=== PATIENT | male | born 1970 | race Caucasian/White ===

== ENCOUNTER 2019-12-06 22:02 | Inpatient (IN) | payer BC, SELFPAY ==
[2019-12-06 22:04] VITALS: BP 146/103; PULSE 126; RESP 21; TEMP 37; O2SAT 99; BMI 31.5
--- NOTE | 2019-12-06 22:09 | ED_ITS ---
Entered by Anna Landry, acting as scribe for Vida Villasenor HPI - Anxiety General: Chief Complaint: Chest Pain Stated Complaint: CP/ANXIETY Time Seen by Provider: 12/06/19 22:12 History of Present Illness: HPI narrative: Pt states he used meth yesterday after being clean for 2 years. Pt states he recently moved to a new house and has been trying to start fresh . He reports some dottie has been in his house and on his property with surveillance drones. Pt is incredibly paranoid and states he became violent tonight because he just couldnt handle it anymore . EMS reports this paranoia to be hallucinated. 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 MD complaint: anxiety Onset (ago): day(s) (1) Severity: mild Quality: constant Place: home History of similar episodes: Yes Provoking factors: other (meth induced) Relieving factors: nothing Associated symptoms: Deny chills, confusion, diaphoresis, fever(s), headache(s), malaise, nausea or vomiting Review of Systems General: Reports: other (negative unless marked) Const: Denies: fever, chills, body aches, fatigue, malaise or diaphoresis Eyes: Denies: change in vision or blurry vision ENMT: Denies: throat pain, painful swallowing, hoarseness, ear pain, ear discharge, Change in hearing or nasal discharge Resp: Denies: shortness of breath, productive cough, non-productive cough, wheezing, coughing up blood or chest congestion GI: Denies: abdominal pain, nausea, vomiting, vomiting blood, coffee grounds in vomit, diarrhea, constipation, cramping, blood in stool or black tarry stool : Denies: flank pain, difficulty urinating, painful urination, urinary frequency, urinary urgency, decreased urine ouput, urinary incontinence or blood in urine Musc: Denies: neck pain, back pain, extremity pain, extremity swelling, joint pain, joint swelling, joint warmth or joint stiffness Skin/Breast: Denies: rash, skin tenderness or yellow skin Neuro: Denies: headache, numbness in extremities, weakness in extremities, changes in sensation, lack of coordination, difficulty walking, dizziness, vertigo or confusion Psych: Reports: anxiety, paranoia, difficulty concentrating and visual hallucinations; Denies: suicidal ideation Endo: Denies: excessive thirst, tired all the time, cold intolerance, exc essive sweating, flushing or hot flashes Brandon/Lymph: Denies: easy bruising, easy bleeding, petechiae or enlarged lymph nodes All/Imm: Denies: hives, throat swelling, tongue swelling, facial swelling or acute wheezing PFSH ED PFSH: Statuses (acute, chronic, etc) shown below reflect problem list status as previously entered and may not be historically accurate Social History Smoking and tobacco status: current some day smoker Substance/Drug Use: current Substance/Drug use type: Methamphetamine Other substance/drug use details: previous addict, clean for 2 years until yesterday Physical Exam HENMT: COMMON NORMALS: normocephalic, head/scalp atraumatic, hearing grossly normal bilaterally, external ears normal, EAC's normal, external nose normal and moist oral mucous membranes HEAD & SCALP: normal to inspection, normocephalic and atraumatic FACE & SINUS: normal facial exam and face symmetric NOSE: external nose normal and nares normal EXTERNAL EAR: Yes external ears normal EXTERNAL AUDITORY CANAL: EAC's normal MOUTH: oral and palatal mucosa normal and tongue normal Eye: COMMON NORMALS: PERRL, EOMs intact bilaterally, conjunctivae normal and no scleral icterus GENERAL EYE: normal appearance of both eyes and normal light reflex CONJUNCTIVA: Yes conjunctivae normal SCLERA: sclerae normal CORNEA: Yes corneas normal PUPIL: Yes PERRL DIRECT OPHTHALMOSCOPY: Yes normal light reflex Neck/C-Spine: COMMON NORMALS: full ROM, no lymphadenopathy, supple, no meningeal signs and no JVD GENERAL: Yes normal visual inspection and Yes trachea midline CERVICAL SPINE: Yes cervical ROM normal Chest: COMMONS NORMALS: inspection of chest normal and palpation of chest normal Resp: COMMON NORMALS: normal respiratory effort, no retractions, no use of accessory muscles and clear to auscultation bilaterally EFFORT & INSPECTION: Yes able to speak in complete sentences AUSCULTATION: clear to auscultation bilaterally Cardio: COMMON NORMALS: no JVD, regular rate, regular rhythm, S1 normal heart sound, S2 normal heart sound, no gallops, no clicks, no murmurs and no rub JUGULAR VENOUS DISTENTION: no JVD RATE: regular rate RHYTHM: regular rhythm HEART SOUNDS: S1 normal and S2 normal GI: COMMON NORMALS: soft to palpation, non-tender, no hepatosplenomegaly and no masses INSPECTION: Yes normal to inspection PALPATION: Yes soft and Yes no hepatosplenomegaly : COMMON NORMALS: Yes no CVA tenderness BLADDER/KIDNEY EXAM: Yes no CVA tenderness Back/Pelvis: COMMON NORMALS: no CVA tenderness, thoracic and lumbar spine normal to inspection, no thoracic nor lumbar tenderness and thoraco-lumbar ROM normal Extremity: COMMON NORMALS: normal to inspection, full ROM, normal capillary refill, no joint enlargement, no clubbing, cyanosis or edema and no calf tenderness Neuro: COMMON NORMALS: CN's II-XII intact bilaterally, moves all extremities, no focal motor deficits and no sensory deficits noted MENINGEAL SIGNS: Yes no meningeal signs Psych: COMMON NORMALS: speech normal APPEARANCE: Yes grossly normal ATTITUDE: Yes paranoid and Yes bizarre ACTIVITY/MOTOR BEHAVIOR: Yes restless SPEECH: Yes normal speech MOOD & AFFECT: Yes anxious and Yes expansive affect THOUGHT PROCESS: flight of ideas and loose associations THOUGHT CONTENT: Yes hallucination(s) ATTENTION/CONCENTRATION: Yes attention grossly intact MEMORY/COGNITION: Yes memory grossly intact and Yes cognition grossly intact INSIGHT: poor JUDGEMENT: fair Skin: COMMON NORMALS: no rashes or lesions noted, skin turgor normal, no jaundice, no petechiae and no mottling GENERAL SKIN EXAM: no rashes or lesions noted and turgor normal Course Vital Signs: Vital signs: Vital Signs Temperature 98.6 F 12/06/19 22:04 Pulse Rate 105 H 12/07/19 00:37 Respiratory Rate 19 H 12/07/19 00:37 Blood Pressure 120/90 12/07/19 00:37 Pulse Oximetry 96 12/07/19 00:37 MDM - Anxiety MDM Narrative: Medical decision making narrative: Arrival?Anika comes in with chest discomfort and tightness after using methamphetamines. He claims he used them yesterday. He appears as though he may still be under the influence of them as he is very paranoid and tachycardic. It appears as though he is having hallucinations. At this time we will evaluate him from a cardiac standpoint as acute coronary syndrome, pulmonary embolism, pneumothorax or toxicologic problem could still be an issue and we will evaluate for this appropriately. We will treat with Ativan and IV fluids and reassess. 0130 -the patient appears to be paranoid still. He is received Ativan and Haldol but still is having hallucinations and delusions. I see no medical cause for his symptoms at this time other than probable methamphetamines. I reviewed the case in full with Dr. emanuel who was agreeable to admit the patient for treatment in the MPU. EKG Data^: EKG 1: EKG interpretation date: 12/06/19 EKG interpretation time: 22:31 Prior EKG tracings: not available for review Interpretation: Sinus tachycardia with a heart rate of 105, normal AK intervals, normal QRS, normal QTC, normal axis, nonspecific ST-T wave changes. Lab Data: Attestation: I reviewed the patient's lab results. Labs: Lab Results 12/06/19 12/06/19 12/06/19 Range/Units 22:27 22:27 22:27 WBC 10.7 H (4.0-10.0) 10^3/ uL RBC 4.79 (4.1-5.3) 10^6/u L Hgb 15.6 (11.7-16.6) g/dL Hct 43.8 (42.0-52.0) % MCV 91.4 (80-94) fL MCH 32.6 (28.0-34.0) pg MCHC 35.6 (30.0-36.0) g/dL RDW 11.3 L (12.1-15.1) % Plt Count 258 (130-400) 10^3/c mm MPV 10.8 H (7.4-10.4) fL Neut % (Auto) 59.9 % Lymph % (Auto) 30.1 % Kleberg % (Auto) 8.3 % Eos % (Auto) 0.7 % Baso % (Auto) 0.6 % Neut # (Auto) 6.4 (1.8-7.7) 10^3/u L Lymph # (Auto) 3.2 (0.8-4.8) 10^3/u L Kleberg # (Auto) 0.9 (0.2-0.9) 10^3/u L Eos # (Auto) 0.1 (0.0-0.8) 10^3/u L Baso # (Auto) 0.1 (0.0-0.1) 10^3/u L Nucleated RBC % (a uto) 0 % Nucleated RBCs # 0.0 /100WBC Sodium 137 (136-145) mmol/L Potassium 4.1 (3.5-5.1) mmol/L Chloride 97 L (98-107) mmol/L Carbon Dioxide 25 (22-29) mmol/L Anion Gap 19.1 H (5-19) BUN 12 (6-20) mg/dL Creatinine 1.1 (0.7-1.2) mg/dL GFR Calculation 71.1 L (90-130) mL/min Glucose 122 H (74-109) mg/dL Lactic Acid 1.2 (0.5-2.2) mmol/L Calcium 10.7 H (8.6-10.0) mg/Dl Magnesium 1.8 (1.7-2.3) mg/dL Total Bilirubin 0.5 (0.15-1.2) mg/dL AST 50 H (0-40) U/L ALT 49 H (0-41) U/L Alkaline Phosphata se 56 (40-130) IU/L Troponin T Baselin e (0-15) ng/mL Troponin T 120 Min sunita (0-15) ng/mL Delta Troponin T (0-10) ABS# Total Protein 7.6 (6.6-8.7) g/dL Albumin 4.4 (3.5-5.2) g/dL Globulin 3.2 (1.3-4.6) g/dL Urine Color (Yellow) Urine Appearance (CLEAR) Urine pH (5-7) Ur Specific Gravit y (1.005-1.030) Urine Protein (Negative) Urine Glucose (UA) (Normal) Urine Ketones (Negative) Urine Occult Blood (Negative) Urine Nitrate (Negative) Urine Bilirubin (NEGATIVE) Urine Urobilinogen (Negative) mg/dL Ur Leukocyte Marie ase (Negative) Urine RBC (0-2) /hpf Urine WBC (0-5) /hpf Ur Squamous Epith Cells (0-5) Urine Bacteria (NONE) Urine Opiates Scre en (Negative) ng/mL Ur Barbiturates Sc reen (Negative) ng/mL Ur Phencyclidine S crn (Negative) ng/mL Ur Amphetamines Sc reen (Negative) ng/mL U Benzodiazepines Scrn (Negative) ng/mL Urine Cocaine Scre en (Negative) ng/mL U Marijuana (THC) Screen (Negative) ng/mL Ethyl Alcohol < 10 (0-10) mg/dL 12/06/19 12/06/19 12/06/19 Range/Units 22:27 23:08 23:08 WBC (4.0-10.0) 10^3/ uL RBC (4.1-5.3) 10^6/u L Hgb (11.7-16.6) g/dL Hct (42.0-52.0) % MCV (80-94) fL MCH (28.0-34.0) pg MCHC (30.0-36.0) g/dL RDW (12.1-15.1) % Plt Count (130-400) 10^3/c mm MPV (7.4-10.4) fL Neut % (Auto) % Lymph % (Auto) % Kleberg % (Auto) % Eos % (Auto) % Baso % (Auto) % Neut # (Auto) (1.8-7.7) 10^3/u L Lymph # (Auto) (0.8-4.8) 10^3/u L Kleberg # (Auto) (0.2-0.9) 10^3/u L Eos # (Auto) (0.0-0.8) 10^3/u L Baso # (Auto) (0.0-0.1) 10^3/u L Nucleated RBC % (a uto) % Nucleated RBCs # /100WBC Sodium (136-145) mmol/L Potassium (3.5-5.1) mmol/L Chloride (98-107) mmol/L Carbon Dioxide (22-29) mmol/L Anion Gap (5-19) BUN (6-20) mg/dL Creatinine (0.7-1.2) mg/dL GFR Calculation (90-130) mL/min Glucose (74-109) mg/dL Lactic Acid (0.5-2.2) mmol/L Calcium (8.6-10.0) mg/Dl Magnesium (1.7-2.3) mg/dL Total Bilirubin (0.15-1.2) mg/dL AST (0-40) U/L ALT (0-41) U/L Alkaline Phosphata se (40-130) IU/L Troponin T Baselin e 9 (0-15) ng/mL Troponin T 120 Min sunita (0-15) ng/mL Delta Troponin T (0-10) ABS# Total Protein (6.6-8.7) g/dL Albumin (3.5-5.2) g/dL Globulin (1.3-4.6) g/dL Urine Color Yellow (Yellow) Urine Appearance Clear (CLEAR) Urine pH 7 (5-7) Ur Specific Gravit y 1.005 (1.005-1.030) Urine Protein Neg (Negative) Urine Glucose (UA) Norm (Normal) Urine Ketones Negative (Negative) Urine Occult Blood 2+ H (Negative) Urine Nitrate Negative (Negative) Urine Bilirubin Neg (NEGATIVE) Urine Urobilinogen Norm (Negative) mg/dL Ur Leukocyte Marie ase Negative (Negative) Urine RBC Rare (0-2) /hpf Urine WBC None (0-5) /hpf Ur Squamous Epith Cells None (0-5) Urine Bacteria Trace (NONE) Urine Opiates Scre en Negative (Negative) ng/mL Ur Barbiturates Sc reen Negative (Negative) ng/mL Ur Phencyclidine S crn Negative (Negative) ng/mL Ur Amphetamines Sc reen Positive H (Negative) ng/mL U Benzodiazepines Scrn Negative (Negative) ng/mL Urine Cocaine Scre en Negative (Negative) ng/mL U Marijuana (THC) Screen Negative (Negative) ng/mL Ethyl Alcohol (0-10) mg/dL 12/07/19 Range/Units 00:11 WBC (4.0-10.0) 10^3/ uL RBC (4.1-5.3) 10^6/u L Hgb (11.7-16.6) g/dL Hct (42.0-52.0) % MCV (80-94) fL MCH (28.0-34.0) pg MCHC (30.0-36.0) g/dL RDW (12.1-15.1) % Plt Count (130-400) 10^3/c mm MPV (7.4-10.4) fL Neut % (Auto) % Lymph % (Auto) % Kleberg % (Auto) % Eos % (Auto) % Baso % (Auto) % Neut # (Auto) (1.8-7.7) 10^3/u L Lymph # (Auto) (0.8-4.8) 10^3/u L Kleberg # (Auto) (0.2-0.9) 10^3/u L Eos # (Auto) (0.0-0.8) 10^3/u L Baso # (Auto) (0.0-0.1) 10^3/u L Nucleated RBC % (a uto) % Nucleated RBCs # /100WBC Sodium (136-145) mmol/L Potassium (3.5-5.1) mmol/L Chloride (98-107) mmol/L Carbon Dioxide (22-29) mmol/L Anion Gap (5-19) BUN (6-20) mg/dL Creatinine (0.7-1.2) mg/dL GFR Calculation (90-130) mL/min Glucose (74-109) mg/dL Lactic Acid (0.5-2.2) mmol/L Calcium (8.6-10.0) mg/Dl Magnesium (1.7-2.3) mg/dL Total Bilirubin (0.15-1.2) mg/dL AST (0-40) U/L ALT (0-41) U/L Alkaline Phosphata se (40-130) IU/L Troponin T Baselin e (0-15) ng/mL Troponin T 120 Min sunita 8.62 (0-15) ng/mL Delta Troponin T -0.38 L (0-10) ABS# Total Protein (6.6-8.7) g/dL Albumin (3.5-5.2) g/dL Globulin (1.3-4.6) g/dL Urine Color (Yellow) Urine Appearance (CLEAR) Urine pH (5-7) Ur Specific Gravit y (1.005-1.030) Urine Protein (Negative) Urine Glucose (UA) (Normal) Urine Ketones (Negative) Urine Occult Blood (Negative) Urine Nitrate (Negative) Urine Bilirubin (NEGATIVE) Urine Urobilinogen (Negative) mg/dL Ur Leukocyte Marie ase (Negative) Urine RBC (0-2) /hpf Urine WBC (0-5) /hpf Ur Squamous Epith Cells (0-5) Urine Bacteria (NONE) Urine Opiates Scre en (Negative) ng/mL Ur Barbiturates Sc reen (Negative) ng/mL Ur Phencyclidine S crn (Negative) ng/mL Ur Amphetamines Sc reen (Negative) ng/mL U Benzodiazepines Scrn (Negative) ng/mL Urine Cocaine Scre en (Negative) ng/mL U Marijuana (THC) Screen (Negative) ng/mL Ethyl Alcohol (0-10) mg/dL Coding Level of Care Code ED Pie Icer Machine for Chg Fwantonio The documentation recorded by the Frantz roland Ashley, accurately reflects the service I personally performed and the decisions made by Jacklyn ridley Eli N
--- NOTE | 2019-12-06 22:12 | XR_ITS ---
WS: [id number] PORTABLE CHEST HISTORY: cough COMPARISON: None available. Lungs are clear and well expanded. No pleural effusion or pneumothorax. Cardiac size: Normal. Mediastinum/Aorta: Normal mediastinum. No osseous abnormality seen. XR/XR chest 1V portable [id number] IMPRESSION: Unremarkable portable chest.
--- NOTE | 2019-12-06 22:13 | ECG_ITS ---
Measurements Intervals [place] Rate: 105 P: 44 NC: 127 QRS: 9 QRSD: 94 T: 46 QT: 349 QTc: 461 SINUS TACHYCARDIA INDETERMINATE AXIS PROBABLE INFERIOR MYOCARDIAL INFARCTION , OF INDETERMINATE AGE [35 ms Q WAVE IN II II/aVF] No previous ECG available for comparison Electronically Signed On 12-07-2019 21:58:35 GOVERNMENT RELATIONS ANALYST by Lisseth Neal M.D. [id number]
[2019-12-06] MEDS: LORazepam 2 mg/mL INJ 1 mL 1 MG IVP (22:22)
[2019-12-06] MEDS: sodium chloride 0.9% 1,000 ML 999 ML IV (22:23)
[2019-12-06 22:24] VITALS: BP 146/103; PULSE 112; RESP 20; O2SAT 96
[2019-12-06 22:36] LABS: Basophils # 0.1 10^3/uL (0.0-0.1); Basophils % 0.6 %; Eosinophils # 0.1 10^3/uL (0.0-0.8); Eosinophils % 0.7 %; Hematocrit 43.8 % (42.0-52.0); Hemoglobin 15.6 g/dL (11.7-16.6); Lymphocytes # 3.2 10^3/uL (0.8-4.8); Lymphocytes % 30.1 %; Mean Corpuscular HGB Conc 35.6 g/dL (30.0-36.0); Mean Corpuscular Hemoglobin 32.6 pg (28.0-34.0); Mean Corpuscular Volume 91.4 fL (80-94); Mean Platelet Volume 10.8 fL (7.4-10.4); Monocytes # 0.9 10^3/uL (0.2-0.9); Monocytes % 8.3 %; Neutrophils # 6.4 10^3/uL (1.8-7.7); Neutrophils % 59.9 %; Nucleated Red Blood Cells % 0 %; Platelet Count 258 10^3/cmm (130-400); Red Blood Count 4.79 10^6/uL (4.1-5.3); Red Cell Distribution Width 11.3 % (12.1-15.1); White Blood Count 10.7 10^3/uL (4.0-10.0)
[2019-12-06 22:55] LABS: Lactic Sepsis W/Reflex 1.2 mmol/L (0.5-2.2)
[2019-12-06 22:57] LABS: Alanine Aminotransferase 49 U/L (0-41); Albumin Level 4.4 g/dL (3.5-5.2); Alkaline Phosphatase 56 IU/L (40-130); Anion Gap 19.1 (5-19); Aspartate Amino Transferase 50 U/L (0-40); Blood Urea Nitrogen 12 mg/dL (6-20); Calcium 10.7 mg/Dl (8.6-10.0); Carbon Dioxide 25 mmol/L (22-29); Chloride 97 mmol/L (98-107); Globulin 3.2 g/dL (1.3-4.6); Glomerular Filtration Rate 71.1 mL/min (90-130); Glucose 122 mg/dL (74-109); Magnesium 1.8 mg/dL (1.7-2.3); Potassium 4.1 mmol/L (3.5-5.1); Sodium 137 mmol/L (136-145); Total Bilirubin 0.5 mg/dL (0.15-1.2); Total Protein 7.6 g/dL (6.6-8.7)
[2019-12-06 22:58] LABS: Troponin(5th) Baseline 9 ng/mL (0-15)
[2019-12-06 23:02] LABS: Alcohol Level < 10 mg/dL (0-10)
[2019-12-06 23:34] LABS: Bilirubin Urine Neg (NEGATIVE); Blood Urine 2+ (Negative); Glucose Urine UA Norm (Normal); Ketones Urine Negative (Negative); Leukocyte Esterase Urine Negative (Negative); Nitrate Urine Negative (Negative); Protein Urine Neg (Negative); Specific Gravity, Urine 1.005 (1.005-1.030); Urine Appearance Clear (CLEAR); Urine Color Yellow (Yellow); Urobilinogen Urine Norm (Negative); pH Urine 7 (5-7)
[2019-12-06 23:38] LABS: Add Urine Culture? No; Bacteria Urine TRACE; RBC Urine RARE /hpf (0-2)
[2019-12-06 23:49] LABS: Barbiturates Screen Urine Negative (Negative); Benzodiazepines Screen Urine Negative (Negative); Cocaine Screen Urine Negative (Negative); Opiate Screen Urine Negative (Negative); PCP Screen Urine Negative (Negative); THC Screen Urine Negative (Negative)
[2019-12-07] VITALS (9 sets, daily range): BP systolic 99–120; BP diastolic 61–90; PULSE 78–105; RESP 16–20; TEMP 36.7–36.9; O2SAT 94–98
[2019-12-07 00:01] LABS: Amphetamines Screen Urine Positive (Negative)
--- NOTE | 2019-12-07 00:13 | ECG_ITS ---
Measurements Intervals [place] Rate: 108 P: 67 GA: 139 QRS: 87 QRSD: 95 T: 50 QT: 335 QTc: 450 SINUS TACHYCARDIA PROBABLE INFERIOR MYOCARDIAL INFARCTION , OF INDETERMINATE AGE [35 ms Q WAVE IN II II/aVF] No previous ECG available for comparison Electronically Signed On 12-07-2019 22:07:22 BUNK ASSEMBLER by Lisseth Neal M.D. [id number]
[2019-12-07] MEDS: LORazepam 2 mg/mL INJ 1 mL 1 MG IVP (00:39)
[2019-12-07] MEDS: haloperidol inj 5 mg/mL INJ 1 mL IM (00:40)
[2019-12-07 00:48] LABS: Troponin 5 2HR 8.62 ng/mL (0-15)
[2019-12-07 00:56] LABS: Troponin 5 2HR Delta -0.38 ABS# (0-10)
[2019-12-07] MEDS: nicotine 2 mg Gum BUCCAL ×2 (13:54→17:38)
--- NOTE | 2019-12-07 16:24 | PM.NHP ---
Providers/Chief Complaint Admitting Physician: Brandon Lizarraga MD Chief Complaint: CP/ANXIETY HPI NPU History of Present Illness SENA MUSTAFA is a 49 year old male Chief complaint: I feel fine now that I'm off crystal meth. 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 He used the substance excessively on 1 day. He feels that because he had not used it in a long while his brain was quite sensitive to it. He became psychotic and fearful. He called his father. His father told him to go to the emergency room. He did so. He was judged to be psychotic and hospitalized in the psychiatric unit for psychosis. Now 24 hours later, he feels that he is doing quite well. He denies the presence of auditory or visual hallucinations. No time was he having any suicidal or homicidal ideation. He is not surprised that the reaction he had but he is embarrassed. He says that it was only a one-day occurrence and is not expected to return to be a pattern or addiction again. Historically, he went through a rehabilitation program as part of his 90 day incarceration in [place] 3 years ago. He has remained clean and sober ever since. He has no other mental health history. He has never been hospitalized for mental illness. He has never seen a psychiatrist on an outpatient basis. He does take Wellbutrin XL 150 mgDaily prescribed by his primary care physician. He saw a counselor while he was in rehabilitation but otherwise has had no history of mental health interventions. Emergency room physician note: HPI narrative: Pt states he used meth yesterday after being clean for 2 years. Pt states he recently moved to a new house and has been trying to start fresh . He reports some dottie has been in his house and on his property with surveillance drones. Pt is incredibly paranoid and states he became violent tonight because he just couldnt handle it anymore . EMS reports this paranoia to be hallucinated. 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 He has never been hospitalized for mental illness. He has never seen a psychiatrist on an outpatient basis. He does take Wellbutrin XL 150 mgDaily prescribed by his primary care physician. He saw a counselor while he was in rehabilitation but otherwise has had no history of mental health interventions. Family psychiatric history: Denied Social history:He recently moved to [place] from [place]. 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 He is looking for work but there is little of that appointment during the winter months. Justin because his family has property in [facility]. He lives alone. He has never been . He has no children. Legal history:There is no follow-up record of incarceration or infection in [place]. However he was incarcerated for 90 days in [place]. Charges were ever stated. Past medical history:Medical history is detailed in the emergency room Nursing notes Mental Status Exam: The patient is an alert, engaging male appearing approximately stated age. He wears glasses. He is believed to be a reliable informant to the best of his ability. Information provided this internally consistent and consistent with that in the chart. Gait is unremarkable. There are no tics or tremors. There is no attention to internal stimuli. Thought processes are goal-directed and connected. Judgment is good. Insight is good. Orientation: The patient is oriented to person, place time and situation. Memory: no deficits noted in immediate, intermediate, or remote spheres. Attention: The patient is alert and interpersonally engaged. Language: Verbalizations are coherent. Fund of knowledge: Fund of knowledge is adequate. Affect/Mood: Affect is consistent with a Euthymic mood. He denied suicidal ideation Affective range appropriate. Psychosis: perception unimpaired except through cognitive distortion; reality testing intact. Diagnoses:Amphetamine intoxication Assessment:Patient became psychotic with amphetamine intoxication. However his prognosis is good given his history over the past 2 years and coping skills which she has described. Treatment plan: Due to the psychiatric conditions and treatment listed in the Assessment and Plan - the patient requires continued hospitalization. Will provide a safe and therapeutic environment for patient.. Will continue inpatient treatment to allow for medication adjustment and monitoring. Will continue q15 min safety checks. Will continue current medications and monitor for medication side effects. Monitor patient's mood, sleep, appetite, and behavior closely. Encourage patient to participate in individual and group therapeutic sessions on the white. Estimated length of stay 3 days The expected benefits and potential side effects of patient's psychiatric medications were discussed with the patient. The patient understands and consents to treatment.CRITERIA FOR DISCHARGE: stable on medications and no longer an im Meds NPU Allergies Allergy/AdvReac Type Severity Reaction Status Date / Time No Known Allergies Allergy Verified 12/07/19 03:58 PFSH NPU PFSH: Statuses (acute, chronic, etc) shown below reflect problem list status as previously entered and may not be historically accurate Social History Smoking and tobacco status: current some day smoker Substance/Drug Use: current Substance/Drug use type: Methamphetamine Other substance/drug use details: previous addict, clean for 2 years until yesterday Vitals/I&O/Wt Last Vital Signs Temp 98.4 F 12/07/19 14:00 Pulse 98 12/07/19 15:59 Resp 20 H 12/07/19 14:00 BP 104/61 12/07/19 14:00 Pulse Ox 95 12/07/19 15:59 12/07/19 12/07/19 12/07/19 06:59 14:59 22:59 Intake Total 1000 / 1000 Balance 1000 / 1000 Weight last 48 hrs Weight 99.79 kg Data NPU : 12/06/19 22:27 12/06/19 22:27 Involuntary Hold Information 96 Hour Hold: 96 Hour Involuntary Admission: Yes 96 Hour Hold Ending Date: 12/13/19 96 Hour Hold Ending Time: 03:07 Attestations NPU Medical Necessity Statement*: Patient will remain in the hospital another 2 nights while we determine whether he is truly an imminent risk to self or others. Coding Level of Care Code Acute Support Merchandiser for Chip Rutledge
[2019-12-07] MEDS: buPROPion XL (24 HR) 150 mg Tablet PO (17:22)
[2019-12-08 06:00] VITALS: BP 111/71; PULSE 74; RESP 18; TEMP 36.4; O2SAT 95
[2019-12-08] MEDS: fenofibrate 145 mg Tablet PO (09:28)
[2019-12-08] MEDS: buPROPion XL (24 HR) 150 mg Tablet PO (09:28)
[2019-12-08] MEDS: nicotine 2 mg Gum BUCCAL (09:29)
[2019-12-08 11:36] VITALS: PULSE 89; O2SAT 96
[2019-12-08 14:00] VITALS: BP 117/80; PULSE 88; RESP 20; TEMP 37.1; O2SAT 96
[2019-12-08 15:32] VITALS: BP 117/80; PULSE 88; RESP 20; TEMP 37.1; O2SAT 96
[2019-12-08 15:34] VITALS: BP 117/80; PULSE 88; RESP 20; TEMP 37.1; O2SAT 96
--- NOTE | 2019-12-13 21:14 | P.DS_ITS ---
Reason for Visit Reason for Visit: Reason For Visit: CP/ANXIETY Hospital Course Discharge Summary November SENA MUSTAFA is a 49 year old male Chief complaint: I feel fine now that I'm off crystal meth. 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 He used the substance excessively on 1 day. He feels that because he had not used it in a long while his brain was quite sensitive to it. He became psychotic and fearful. He called his father. His father told him to go to the emergency room. He did so. He was judged to be psychotic and hospitalized in the psychiatric unit for psychosis. Now 24 hours later, he feels that he is doing quite well. He denies the presence of auditory or visual hallucinations. No time was he having any suicidal or homicidal ideation. He is not surprised that the reaction he had but he is embarrassed. He says that it was only a one-day occurrence and is not expected to return to be a pattern or addiction again. Historically, he went through a rehabilitation program as part of his 90 day incarceration in [place] 3 years ago. He has remained clean and sober ever since. He has no other mental health history. He has never been hospitalized for mental illness. He has never seen a psychiatrist on an outpatient basis. He does take Wellbutrin XL 150 mgDaily prescribed by his primary care physician. He saw a counselor while he was in rehabilitation but otherwise has had no history of mental health interventions. Emergency room physician note: HPI narrative: Pt states he used meth yesterday after being clean for 2 years. Pt states he recently moved to a new house and has been trying to start fresh . He reports some dottie has been in his house and on his property with surveillance drones. Pt is incredibly paranoid and states he became violent tonight because he just couldnt handle it anymore . EMS reports this paranoia to be hallucinated. 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 He has never been hospitalized for mental illness. He has never seen a psychiatrist on an o utpatient basis. He does take Wellbutrin XL 150 mgDaily prescribed by his primary care physician. He saw a counselor while he was in rehabilitation but otherwise has had no history of mental health interventions. Family psychiatric history: Denied Social history:He recently moved to [place] from [place]. 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 He is looking for work but there is little of that appointment during the winter months. Justin because his family has property in [facility]. He lives alone. He has never been . He has no children. Legal history:There is no follow-up record of incarceration or infection in [place]. However he was incarcerated for 90 days in [place]. Charges were ever stated. Past medical history:Medical history is detailed in the emergency room Nursing notes Mental Status Exam: The patient is an alert, engaging male appearing approximately stated age. He wears glasses. He is believed to be a reliable informant to the best of his ability. Information provided this internally consistent and consistent with that in the chart. Gait is unremarkable. There are no tics or tremors. There is no attention to internal stimuli. Thought processes are goal-directed and connected. Judgment is good. Insight is good. Orientation: The patient is oriented to person, place time and situation. Memory: no deficits noted in immediate, intermediate, or remote spheres. Attention: The patient is alert and interpersonally engaged. Language: Verbalizations are coherent. Fund of knowledge: Fund of knowledge is adequate. Affect/Mood: Affect is consistent with a Euthymic mood. He denied suicidal ideation Affective range appropriate. Psychosis: perception unimpaired except through cognitive distortion; reality testing intact. Diagnoses:Amphetamine intoxication Assessment:Patient became psychotic with amphetamine intoxication. However his prognosis is good given his history over the past 2 years and coping skills which she has described. Treatment plan: Due to the psychiatric conditions and treatment listed in the Assessment and Plan - the patient requires continued hospitalization. Will provide a safe and therapeutic environment for patient.. Will continue inpatient treatment to allow for medication adjustment and monitoring. Will continue q15 min safety checks. Will continue current medications and monitor for medication side effects. Patient did well over the first 36 hours with no signs of withdrawal or confusion. He showed no signs of psychosis. There was no imminent risk to self or others. The patient requested and was granted discharge (December 08, 2019) Involuntary Hold Information 96 Hour Hold: 96 Hour Involuntary Admission: Yes 96 Hour Hold Ending Date: 12/13/19 96 Hour Hold Ending Time: 03:07 Discharge Data Data Completed and Pending: Completed Studies During Hospitalization Category Date Time Status XR chest 1V elio ble 92312 Stat Exams 12/06/19 22:12 Completed Vitals: Last Vital Signs Temp 98.7 F 12/08/19 15:34 Pulse 88 12/08/19 15:34 Resp 20 H 12/08/19 15:34 BP 117/80 12/08/19 15:34 Pulse Ox 96 12/08/19 15:34 Discharge Plan Discharge Patient Disposition: Home, Self-Care Condition: Stable Discharge Orders: Discharge Order (Routine); Ordered 12/08/19 Ordered By: Brandon Lizarraga Discharge Diet: Regular Discharge Activity: Increase activity as tolerated Activity Restrictions/Additional Instructions: follow-up with your current provider. you said that you will make your appointment. you said that you see someone in [place] If you want a local provider go during the walk-in hours at [facility] here in [place] and request initial intake walk-in hours 7:30-2:30 [facility] ([facility]) [address] [facility] [address] [place] [address] if interested, go to [facility] [address] [place] [address] Discharge Date/Time: 12/08/19 15:41 Discharge Attestations NPU Time Spent in Discharge Care*: less than 30 min Coding Level of Care Code Acute Drop Count Associate for Chip Rutledge
== END 2019-12-08 15:41 | disposition home or self-care (01) | DRG 897 ==
LOC: ER 12-07 00:40 → NP 12-07 03:44
PROVIDERS: Admitting Provider Psychiatry & Neurology Psychiatry; Emergency Provider Emergency Medicine; Visit Provider Psychiatry & Neurology Psychiatry
DX: F15.129 Other stimulant abuse with intoxication, unspecified (principal); F23 Brief psychotic disorder; F17.210 Nicotine dependence, cigarettes, uncomplicated
CPT/HCPCS: 12345; 36415; 71045; 80053; 80307; 81001; 83605; 83735; 84484; 85025; 93005; 96360; 96361; 96372; 96374; 99283; J1630; J2060; J7030

== ENCOUNTER 2025-05-19 11:42 | Emergency (ER) | payer MEDICAID, SELFPAY ==
--- OUTSIDE RECORDS SUMMARY | 2024-11-19 10:00 | XMS_ITS ---
Author Organization [facility] Address [address] [place] [address] Care Team Providers Care Body Component Engineer Name Role Phone Lovely Selby Primary Care Provider [phone] LOVELY SELBY Unavailable Unavailable REASON FOR VISIT 4 month follow up Encounters Encounter Location Date Provider Diagnosis [facility] [address] [address] 11/19/2024 Lovely Selby Plan Of Treatment No Information Progress Notes * ZOILASENA AHUMADADOB:1970 ( 54 yo M)Acc No.[id number]:11/19/2024 Progress Notes Patient: SENA BRYANT Provider: Aniket Selby APRN :1970 A ge:53 Y S ex:Male Date:11/19/2024 Address:[facility] [id number] Subjective: * Chief Complaints: * 1 . 4 month follow up. * Medical History: Objective: * Vitals: Assessment: Plan: * Treatment: Forms: * Billing Information: * Visit Code: * Procedure Codes: Care Plan Details* * Electronic signature of Becky Selby APN on 05/19/2025 at 11:46 AM CDT Sign off status: Pending * Provider: Aniket Selby APRN Date: 11/19/2024 Generated for Solange masters/Rolo/eTransmitting on: 0 05/19/2025 11:46 AM CDT
--- OUTSIDE RECORDS SUMMARY | 2025-01-13 08:20 | XMS_ITS ---
Author Organization [facility] Address [address] [place] [address] Care Team Providers Care Employee Relations Consultant Name Role Phone Lovely Selby Primary Care Provider [phone] LOVELY SELBY Unavailable Unavailable REASON FOR VISIT Annual Wellness Visit Encounters Encounter Location Date Provider Diagnosis [facility] [address] [address] 01/13/2025 Lovely Selby Plan Of Treatment No Information Progress Notes * ZOILASENA AHUMADADOB:1970 ( 54 yo M)Acc No.[id number]:01/13/2025 Progress Notes Patient: SENA BRYANT Provider: Aniket Selby SHOE REPAIRER :1970 A ge:54 Y S ex:Male Date:01/13/2025 Address:[facility] [id number] Subjective: * Chief Complaints: * 1 . Annual Wellness Visit. * Medical History: * Ocular Surgical History: Objective: * Vitals: Assessment: Plan: * Treatment: * Billing Information: * Visit Code: * Procedure Codes: * Electronic signature of Becky Selby APN on 05/19/2025 at 11:46 AM CDT Sign off status: Pending * Provider: Aniket Selby SHOE REPAIRER Date: 01/13/2025 Generated for Solange masters/Rolo/Renaitting on: 0 05/19/2025 11:46 AM CDT
--- OUTSIDE RECORDS SUMMARY | 2025-05-19 11:46 | XMS_ITS | Patient Health Record ---
Author Organization [facility] Address [address] [place] [address] Care Team Providers Care Forester Silviculture Name Role Phone Lovely Selby Primary Care Provider LOVELY SELBY Unavailable Unavailable Allergies No Known Allergies Results Component Value Reference Range Notes COVID-19 RAPID - 85179 Reviewed date:12/13/2024 10:38:59 AM Interpretation: Performing Lab: Notes/Report: COVID19 neg Influenza A/B - 99634 Reviewed date:12/13/2024 10:38:40 AM Interpretation: Performing Lab: Notes/Report: A neg B neg PSA Medicare Screening--G010 3 Reviewed date:07/02/2024 12:10:15 PM Interpretation: Performing Lab: Notes/Report: Diagnosis Description: Encounter for screening for malignant neoplasm of prostate PSA 1.15 .00-4.00 NG/ML PSA concentra tions, regardless of the value, should not be interpreted as definitive evidence for the presence or absence of prostate cancer. Thyroid Stimulating Hormone (TSH) 80254 Reviewed date:07/02/2024 12:08:52 PM Interpretation: Performing Lab: Notes/Report: Diagnosis Description: Hyperglycemia, unspecified TSH 1.307 .358-3.740 MlU/ML Lipid Panel Reflex DLDL 8006 4, 42533 Reviewed date:07/02/2024 12:09:17 PM Interpretation: Performing Lab: Notes/Report: Diagnosis Description: Pure hyperglyceridemia Trig 316 Classification Guidelines:Triglycerides Adults: >20yrs Desirable <150 Borderline High 150-199 High 200-499 Very high >=500 Children: Male 0-4 yr 22-99 5-9 yr 30-101 10-14 yr 32-125 15-19 yr 37-148 Children: Female 0-4 yr 34-112 5-9 yr 32-105 10-14 yr 37-131 15-19 yr 39-132 Chol 264 <=200 MG/DL HDL 63 30-72 MG/DL Reference Ranges:HDL Male: 5-9y 38-75 10-14y 37-74 15-19y 30-63 >=20y 40-59 Female: 5-9y 36-73 10-14y 37-70 15-19y 35-74 >=20y 40-59 CH/HDL 4.2 0.0-4.9 RATIO LDL 137 0-130 MG/DL LDL result is i naccurate , if Trig is >400 mg/dl. See DLDL result. Hemoglobin A1c 01171 Reviewed date:07/02/2024 12:08:31 PM Interpretation: Performing Lab: Notes/Report: Diagnosis Description: Hyperglycemia, unspecified Hgb A1c 5.6 3.8-6.4 % Interpretation Of Hgb A1c: 4.5-6.2 % nondiabetics. >7.0 % diabetics. EAG [address] [place] ge Glucose(EAG). Comprehensive Metabolic Pane l (CMP) 28355 Reviewed date:07/02/2024 12:09:05 PM Interpretation: Performing Lab: Notes/Report: Diagnosis Description: Hyperglycemia, unspecified Glucose Serum 117 71-110 MG/DL Testing perfor med at [facility], [address] [place] [address] [place] [address]. CLIA ID#: [id number] BUN 17 7-21 MG/DL Creat .84 .57-1.17 MG/DL V-vpwjsq-x-benzoquinone imine (NAPQI) is a metabolite of acetaminophen, NAPQI concentrations of apparoximately 10 mg/L correlation to toxic levels of acetaminophen demonstrates a greater than or equil to 10% change in results. NAPQI concentrations greater than this may lead to falsely depressed results for patient samples. Use of this assay is not recommended for patients undergoing treatment with phenindione, due to the potential for falsely depressed results. GFR 103.3 Calculation per formed from GFR calculator provided by the National [employer]. Glomerular Filtration rate(GRF) is the best overall index of kidney function. Normal GFR varies according to age,sex, body size, and declines with age. The National Kidney Foundation recommends using the CKD-EPI Creatinine Equation(2020) to estimate GFR. BUN/Creat Ratio 20.2 12.0-20.0 % Total Protein 6.7 5.8-8.0 G/DL Albumin 4.5 3.2-4.8 G/DL Globulin 2.3 2.3-3.5 G/DL Alb/Glob 2.0 0.8-2.2 Calcium 10.2 8.7-10.4 MG/DL Sodium 139 136-145 MMOL/L Potassium 4.3 3.5-5.1 MMOL/L Chloride 102 98-107 MMOL/L CO2 28.6 20.0-31.0 MMOL/L Anion Gap 13 5-15 Alk Phos 89 46-116 Bili Total .2 .3-1.2 MG/DL Use of this ass ay is not recommended for patients undergoing treatment with eltrombopag due to the potential for falsely elevated results. AST/SGOT 20 15-37 UNIT/L ALT/SGPT 34 12-78 UNIT/L Osmo Serum,Calculated 291 280-300 MOSM/KG CBC w\ Auto Diff 35449 Reviewed date:07/02/2024 12:10:00 PM Interpretation: Performing Lab: Notes/Report: Diagnosis Description: Hyperglycemia, unspecified WBC 16.6 4.5-11.0 X10'3 RBC 4.80 4.50-5.90 X10'6 Hgb 15.4 13.5-17.5 G/DL Hct 45.6 41.0-53.0 % MCV 95.0 80.0-100.0 FL MCH 32.1 27.0-31.0 PG MCHC 33.8 31.0-37.0 G/DL Platelet 282 150-400 X10'3 RDW-SD 41.0 35.0-49.0 FL RDW-CV 11.8 12.2-15.6 % MPV 11.1 9.2-12.0 FL Neutro Auto% 83.1 40.0-70.0 % Lymph Auto% 10.7 22.0-44.0 % [place] Auto% 5.2 3.0-7.0 % Eos Auto% .1 2.0-4.0 % Baso Auto% 0.2 0.0-1.0 % Imm Gran% .7 .0-.4 % Neutro Abs 13.85 .80-7.70 Absolute Neutrophil Count 95864 Lymph Abs 1.78 .10-4.10 [place] Abs .86 .20-1.00 Eos Abs .01 .00-.40 Baso Abs .04 .00-.20 Imm Gran Abs .11 .00-.10 NRBC# .00 .00-.20 NRBC% .00 .00-.20 /100 int act WBC's Reason For Referral No Information Medications Medication SIG (Take, Route, Frequency, Duration) Notes Start Date End Date Status Rosuvastatin Calcium 20 mg TAKE ONE TABL ET BY MOUTH DAILY for 30 Active Escitalopram Oxalate 20 mg TAKE ONE TABL ET BY MOUTH TWICE DAILY for 30 days Active Ventolin HFA 108 (90 Base) MCG/ACT inhale 2 puffs into lungs FOUR TIMES DAILY NEEDED for 25 Active traMADol HCl 50 mg TAKE ONE TABLET BY MOUTH EVERY 4 HOURS NEEDED FOR SEVERE pain FOR 30 DAYS for 30 04/26/2025 Active ALPRAZolam 0.5 mg TAKE 1/2 TO 1 TABLET BY MOUTH THREE TIMES DAILY NEEDED FOR ANXIETY FOR 30 DAYS for 30 days 04/26/2025 Active Cephalexin 500 MG 2 caps Orally twice a day for 10 06/29/2024 Not-Taking methylPREDNISolone 4 mg TAKE DIRECTED ON PACKAGE FOR 6 DAYS (TAKE WITH FOOD) for 6 Not-Taking guaiFENesin ER 600 mg TAKE ONE TABLET BY MOUTH TWICE DAILY NEEDED FOR congestion FOR 30 DAYS for 30 Not-Taking Immunizations Vaccine Route Administration Date Status Comme nts COVID (PFR) 12+yr 2022- Unknown 09/11/2023 Administered COVID-19 Vaccine (Tomás & Tomás) Unknown 02/26/2021 Administered COVID-19 Vaccine (Tomás & Tomás) Unknown 09/28/2021 Administered COVID-19 Vaccine (Moderna) Dose #3 Unknown 03/27/2022 Administered COVID-19 Vaccine (Moderna), Bivalent Booster Unknown 08/30/2022 Administered Fluarix Quadrivalent Unknown 10/03/2015 Administered Fluarix Quadrivalent Unknown 09/12/2017 Administered Fluarix Quadrivalent Unknown 07/27/2019 Administered Fluarix Quadrivalent Unknown 08/24/2021 Administered Flucelvax Quadrivalent Pres Free Unknown 08/15/2018 Administered Flucelvax Quadrivalent Pres Free Unknown 08/30/2022 Administered Flucelvax Quadrivalent Pres Free Unknown 09/11/2023 Administered Flucelvax Trivalent, Syringe 0.5 mL, PF Unknown 12/13/2024 Contraindications Flulaval, Trivalent, Syringe, 0.5mL, PF Unknown 09/10/2013 Administered Influenza - Split Unknown 09/30/2005 Administered Influenza - Split Unknown 09/25/2007 Administered Influenza - Split Unknown 09/23/2008 Administered Influenza - Split Unknown 09/14/2010 Administered Influenza - Split Unknown 09/13/2011 Administered Influenza - Split Unknown 09/11/2012 Administered Novel [id number] Unknown 10/24/2009 Administered Pneumovax 23 Unknown 09/18/2018 Administered Prevnar 20 Unknown 10/24/2023 Administered Shingrix Unknown 04/08/2023 Administered Tdap Unknown 07/23/2017 Administered zzTetanus toxoid, absorbed IM Intramuscular 05/27/2022 Administered ND: 77416-657-24 Patient tolerated well, advised to wait 20 min at clinic Social History Tobacco Use: Social History Observation Description Date Details (start date - stop date) Current Smoker NA - NA Alcohol Screen (Audit-C) Question Answer Notes Did you have a drink contain ing alcohol in the past year? Yes How often did you have a dri nk containing alcohol in the past year? Monthly or less (1 point) How many drinks did you have on a typical day when you were drinking in the past year? 1 or 2 drinks (0 point) How often did you have 6 or more drinks on one occasion in the past year? Never (0 point) Points 1 Interpretation Negative PHQ-9 Question Answer Notes Little interest or pleasure in doing things Not at all Feeling down, depressed, or hopeless Several day s Trouble falling or staying asleep, or sleeping t oo much Several days Feeling tired or having little energy Not at all Poor appetite or overeating Not at all Feeling bad about yourself, or that you are a failure, or have let yourself or your family down Several days Trouble concentrating on thi ngs, such as reading the newspaper or watching television Not at all Moving or speaking so slowly that other people could have noticed. Or the opposite ? being so fidgety or restless that you have been moving around a lot more than usual Not at all Thoughts that you would be b baldev off , or of hurting yourself in some way Not at all Total Score 3 Interpretation Minimal Depression Tobacco Control (Standard) Question Answer Notes Tobacco use: Current smoker How often do you smoke cigarettes? Every day How many cigarettes a day do you smoke? 5 or les s Are you interested in quitting? Thinking about q uitting Section Notes: Depression screen 01/03/2023 Depression screen 02/24/2024 s core 3 05/27/2022 Depression screen 01/03/2023 Depression screen 01/03/2023 Depression screen 01/03/2023 Depression screen 02/24/2024 s core 3 Depression screen 02/24/2024 s core 3 Depression screen 02/24/2024 s core 3 Depression screen 02/24/2024 s core 3 05/27/2022 Problems Problem Type SNOMED Code ICD Code Onset Dates Problem Status W/U Status Risk Notes Problem 17119544 Nicotine dependence, cigarettes, uncomplicated (F17.210) Active confirmed Problem 98494620 Generalized anxiety disorder (F41.1) Active confirmed Problem 05162224 Anxiety (F41.9) Active confirmed Problem Sinusitis (17723307) Sinusitis (J32.9) Active confirmed Problem Leukocytosis (962670801) Leukocytosis, unspecified (D72.829) Active confirmed Problem 17859323 Nicotine dependence, uncomplicated, unspecified nicotine product type (F17.200) Active confirmed Problem 451146784405626 Right foot pain (M79.671) Active confirmed Problem 812657023 Cellulitis of right lower extremity (L03.115) Active confirmed Problem 680646275 High triglycerides (E78.1) Active confirmed Problem 477930689 Puncture wound (T14.8XXA) Active confirmed Problem 80375408 Other depression (F32.89) Active confirmed Problem Hyperlipidemia (50359324) Hyperlipidemia (E78.5) Active confirmed Vital Signs Heart Rate 67 /min 12/13/2024 Temperature 97.5 degrees Fahrenheit 12/13/2024 Respiratory Rate 18 /min 12/13/2024 Height-cm 177.8 cm 12/13/2024 Oximetry 97 % 12/13/2024 Blood pressure diastolic 85 mm Hg 12/13/2024 Weight-kg 93.44 kg 12/13/2024 Height 70 in 12/13/2024 Blood pressure systolic 134 mm Hg 12/13/2024 Weight 206 lbs 12/13/2024 BMI 29.55 kg/m2 12/13/2024 Encounters Encounter Location Date Provider Diagnosis [address] [address] 06/29/2024 [facility] High triglycerides E 78.1 ; Anxiety F41.9 ; Other depression F32.89 ; Lumbar pain M54.50 and Cellulitis L03.[address] [address] 07/01/2024 [facility] Hyperglycemia R73.9 ; High triglycerides E78.1 ; Prostate cancer screening Z12.5 and Arthralgia, unspecified joint M25.[address] [address] 07/20/2024 [facility] Anxiety F41.9 ; Cellulitis L03.90 ; Leukocytosis, unspecified D72.829 and Hyperlipidemia E78.[address] [address] 12/13/2024 [facility] Anxiety F41.9 ; Othe r depression F32.89 ; Lumbar pain M54.50 ; Sinus drainage J34.89 ; Bronchitis J40 ; Sinusitis J32.9 ; Hyperlipidemia E78.5 ; Encounter for long-term (current) drug use Z79.899 ; Thyroid disorder screen Z13.29 ; Hyperglycemia R73.9 and Encounter for immunization Z23 [address] [address] 10/11/2024 Lovely Selby Assessments Encounter Date Diagnosis (ICD Code) Assessment Notes Treatment Notes Treatment Clinical Notes Section Notes 06/29/2024 Anxiety (ICD-10 - F41.9) xanax 06/29/2024 High triglycerides (ICD-10 - E78.1) 07/01/2024 Hyperglycemia (ICD-10 - R73.9) 07/01/2024 High triglycerides (ICD-10 - E78.1) 07/20/2024 Anxiety (ICD-10 - F41.9) xanax; lexapro 07/20/2024 Cellulitis (ICD-10 - L03.90) keflex; wound care 12/13/2024 Anxiety (ICD-10 - F41.9) xanax 12/13/2024 Other depression (ICD-10 - F32.89) lexapro 12/13/2024 Lumbar pain (ICD-10 - M54.50) tramadol 07/20/2024 Leukocytosis, unspecified (ICD-10 - D72.829) 07/01/2024 Prostate cancer screening (ICD-10 - Z12.5) 06/29/2024 Other depression (ICD-10 - F32.89) lexapro 06/29/2024 Lumbar pain (ICD-10 - M54.50) tramadol 07/01/2024 Arthralgia, unspecified joint (ICD-10 - M25.50) 07/20/2024 Hyperlipidemia (ICD-10 - E78.5) crestor 12/13/2024 Sinus drainage (ICD-10 - J34.89) flu swab; negative covid swab; negative 12/13/2024 Bronchitis (ICD-10 - J40) z jerri 06/29/2024 Cellulitis (ICD-10 - L03.90) keflex 12/13/2024 Sinusitis (ICD-10 - J32.9) depomedrol/dec adron im 12/13/2024 Hyperlipidemia (ICD-10 - E78.5) crestor lipids 12/13/2024 Encounter for long-term (current) drug use (ICD-10 - Z79.899) cbc cmp 12/13/2024 Thyroid disorder screen (ICD-10 - Z13.29) tsh 12/13/2024 Hyperglycemia (ICD-10 - R73.9) ha1c 12/13/2024 Encounter for immunization (ICD-10 - Z23) 06/29/2024 Other Questions asked and answered; discharged to home. 07/01/2024 Other Venipuncture: Performed by: Eva CARMONA Attempts: x1 Location: [facility] Needle gauge: 22g Patient tolerated well. 07/20/2024 Other Questions asked and answered; discharged to home. 12/13/2024 Other Questions asked and answered; discharged to home. Plan Of Treatment Future Test Test Name Order Date CBC w\ Auto Diff 42928 12/13/2024 Comprehensive Metabolic Panel (CMP) 8005 3 12/13/2024 Hemoglobin A1c 63596 12/13/2024 Lipid Panel Reflex DLDL 13245, 88151 Thyroid Stimulating Hormone (TSH) 10919 12/13/2024 Insurance Providers Payer Name Payer Address Payer Phone Subscriber Number Group Number Insured Name Patient Relationship to Insured Coverage Start Date Coverage End Date [place] Medicaid [address] [place] [address] [id number] SENA MUSTAFA Self - patient is the insured Medications Administered Medication Instructions Date of Administration Dosage Notes DEPO-Medrol 05/27/2022 40 mg ND: [address]-32 Patient tolerated well, advised to wait 20 min at clinic DEPO-Medrol 12/13/2024 40 mg ndc 70226-201 3-10 pt tolerated well/instructed to wait 20 min dexAMETHasone 05/27/2022 4 mg NDC: 25030-814-34 Patient tolerated well, advised to wait 20 min at clinic dexAMETHasone 12/13/2024 [place] [address]-6 419-00 pt tolerated well/instructed to wait 20 min Rocephin 05/27/2022 250 mg NDC: 9458-7417-94 Patient tolerated well, advised to wait 20 min at clinic Medical (General) History Medical History History ICD Code anxiety asthma - severe persistent covid Surgical History Surgery Date(Month/Year) tonsillectomy
[2025-05-19 11:58] VITALS: BP 155/93; PULSE 118; RESP 18; TEMP 37.1; O2SAT 98; BMI 33.0
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
[2025-05-19 13:22] VITALS: BP 130/93; PULSE 97; O2SAT 97
== END 2025-05-19 13:23 | disposition home or self-care (01) ==
PROVIDERS: Emergency Provider Emergency Medicine
DX: S40.022A Contusion of left upper arm, initial encounter (principal); M79.605 Pain in left leg; M25.561 Pain in right knee; Y08.89XA Assault by other specified means, initial encounter; Z72.0 Tobacco use
CPT/HCPCS: 99281